=== PATIENT | female | born 1935 | race Hispanic/Latino ===

== ENCOUNTER 2016-07-20 07:56 | Day surgery (SDC) | payer OTHER ==
[2016-06-26 13:21] VITALS: BMI 25.6
--- NOTE | 2016-07-19 20:31 | HP ---
REASON FOR ADMISSION: Abnormal stress test, for cardiac catheterization. BRIEF CLINICAL HISTORY: This is an 81-year-old female with past medical history significant for anneliese nary artery disease, status post PTCA 1998, diabetes, hypertension, hyperlipidemia, who had recently a stress test, abnormal, so patient is scheduled for elective cardiac cath and possible angioplasty. PAST MEDICAL HISTORY: Significant for type 2 diabetes, hypertension, hyperlipidemia, coronary artery disease, peripheral neuropathy, history of coronary artery disease, status post PTCA in 1997. Previous cardiac workup as follows: The patient had echocardiography done 06/15/2016 that shows eject ion fraction 55%, moderate diastolic dysfunction, moderate aortic regurgitation, moderate mitral regu rgitation, trace tricuspid regurgitation. The patient had a stress test on 06/26/2016 that shows abnor mal SPECT myocardial perfusion study, partially reversible, apical defect suspicious for ischemia, ej ection fraction 70%. When compared from the previous study dated 09/24/2014, the apical defect appears new. REVIEW OF SYSTEMS: As per HPI. CURRENT MEDICATIONS: The patient is taking at home omeprazole 20 mg daily, Meloxicam, Mobic 50 mg, f olic acid 1 mg, aspirin 81 mg, metoprolol 50 mg, Plavix 75 mg, atorvastatin 40, metformin 500, clonid ine 0.1 mg, amlodipine 10 mg, lisinopril 40 mg daily. REVIEW OF SYSTEMS: As per HPI. ALLERGIES: No known drug allergies. PHYSICAL EXAMINATION: VITAL SIGNS: Temperature afebrile, heart rate 70, blood pressure 160/90. Height of the patient is 5 feet 5 inches, weight of the patient is 154 pounds, body mass index 25.6 kg/m2. HEENT: PERRLA. Extraocular muscles intact. NECK: Supple. No carotid bruits. No thyromegaly. CHEST: Clear to auscultation. HEART: S1, S2 regular. ABDOMEN: Soft. EXTREMITIES: Clubbing and cyanosis negative. BLOOD WORKUP: Pending. IMPRESSION: Abnormal stress test, history of coronary artery disease, status post percutaneous trans luminal coronary angioplasty in 1997, diabetes, hypertension, hyperlipidemia. RECOMMENDATION: We will give 300 Plavix, 325 aspirin. Risks, benefits, alternatives discussed with the patient. The patient agreed. We will proceed with cardiac catheterization. Further recommendat ion after cardiac catheterization. We will follow with you. Thank you, Dr. Collins and Dr. Goins, for providing the opportunity in taking care of the patient. Trish Salgado MD cc: [id number] TT: 07/19/2016 20:30:57 rn
[2016-07-20 08:19] LABS: ADD MANUAL DIFF? NO
[2016-07-20 08:28] LABS: BASO # 0.01 K/mm3 (0.0-2.0); BASO % 0.2 % (0.0-3.0); EOS # 0.2 (0.0-0.7); EOS % 4.3 % (1.5-5.0); GRAN # 2.85 (1.4-6.5); GRAN % 57.6 % (50.0-68.0); HEMATOCRIT 39.2 % (36.0-48.0); LYMPH # 1.2 (1.2-3.4); LYMPH % 24.7 % (22.0-35.0); MEAN CELL VOLUME 94.7 fL (80.0-105.0); MEAN CORPUSCULAR HEMOGLOBIN 32.1 pg (25.0-35.0); MEAN CORPUSCULAR HGB CONC 33.9 g/dl (31.0-37.0); MEAN PLATELET VOLUME 11.4 fl (7.0-11.0); MONO # 0.7 (0.1-0.6); MONO % 13.2 % (1.0-6.0); PLATELET COUNT 199 10^3/uL (120.0-450.0); RED CELL DISTRIBUTION WIDTH 13.6 % (11.5-14.5); WHITE BLOOD COUNT 4.9 10^3/ul (4.5-11.0)
[2016-07-20 08:39] LABS: ALB/GLOB RATIO 1.1 (1.1-1.8); ALKALINE PHOSPHATASE 76 U/L (38-133); ALT/SGPT 19 U/L (7-56); AST/SGOT 33 U/L (15-39); BILIRUBIN,TOTAL 0.7 mg/dL (0.2-1.3); BLOOD UREA NITROGEN 19 mg/dL (7-21); CALCIUM 9.5 mg/dL (8.4-10.5); CARBON DIOXIDE 27 mmol/L (21-33); CHLORIDE 105 mmol/L (98-107); CHOLESTEROL 163 mg/dL (130-200); GFR AFRICAN-AMERICAN > 60; GLUCOSE,RANDOM 119 mg/dL (70-110); POTASSIUM 4.2 mmol/L (3.6-5.0); SODIUM 141 mmol/L (132-148); TOTAL PROTEIN 7.5 g/dL (5.8-8.3)
[2016-07-20 08:42] LABS: INR 1.03 (0.93-1.08); PARTIAL THROMBOPLASTIN TIME 27.1 Seconds (23.7-30.8)
[2016-07-20] MEDS ORDERED: Nitroglycerin 50mg in D5W 250 ML IV ONE (10:56)
[2016-07-20] MEDS ORDERED: Eptifibatide 20 mg/10mL Inj IVP ONE (11:45)
[2016-07-20] MEDS ORDERED: Lidocaine 2% Inj (20ml) ONE (13:11)
[2016-07-20] MEDS ORDERED: Iodixanol 320 MG/ML 100 ML BOTTLE IV ONE (13:12)
[2016-07-20] MEDS ORDERED: Iodixanol 320 MG/ML 200 ML BOTTLE IV ONE (13:12)
[2016-07-20] MEDS ORDERED: Midazolam 2 MG/2 ML VIAL ONE (13:12)
[2016-07-20] MEDS ORDERED: Iohexol 350mgl/ml 50 ML ONE (13:12)
[2016-07-20] MEDS: Sodium Chloride 0.9% 1,000 ML IV SCH (13:36)
[2016-07-20] MEDS ORDERED: Sodium Chloride 0.9% 1,000 ML IV SCH (14:00)
[2016-07-20 16:12] LABS: ADD MANUAL DIFF? NO
[2016-07-20 16:14] LABS: BASO # 0.01 K/mm3 (0.0-2.0); BASO % 0.2 % (0.0-3.0); EOS % 0.8 % (1.5-5.0); GRAN # 3.23 (1.4-6.5); GRAN % 65.3 % (50.0-68.0); HEMATOCRIT 37.3 % (36.0-48.0); LYMPH # 1.2 (1.2-3.4); LYMPH % 23.2 % (22.0-35.0); MEAN CELL VOLUME 93.7 fL (80.0-105.0); MEAN CORPUSCULAR HEMOGLOBIN 32.4 pg (25.0-35.0); MEAN CORPUSCULAR HGB CONC 34.6 g/dl (31.0-37.0); MEAN PLATELET VOLUME 11.2 fl (7.0-11.0); MONO # 0.5 (0.1-0.6); MONO % 10.5 % (1.0-6.0); PLATELET COUNT 172 10^3/uL (120.0-450.0); RED CELL DISTRIBUTION WIDTH 13.4 % (11.5-14.5)
[2016-07-20 16:23] LABS: BLOOD UREA NITROGEN 15 mg/dL (7-21); CALCIUM 8.8 mg/dL (8.4-10.5); CARBON DIOXIDE 24 mmol/L (21-33); CHLORIDE 105 mmol/L (98-107); GFR AFRICAN-AMERICAN > 60; GLUCOSE,RANDOM 162 mg/dL (70-110); POTASSIUM 3.4 mmol/L (3.6-5.0); SODIUM 138 mmol/L (132-148)
--- NOTE | 2016-07-20 18:22 | CARD ---
APPROVED REPORT EKG Measurement Heart [id number] <Conclusion> Normal sinus rhythm Minimal voltage criteria for LVH, may be normal variant Nonspecific ST and T wave abnormality Prolonged QT Abnormal ECG
[2016-07-20] MEDS ORDERED: Potassium Chloride 20 mEq ER Tab PO ONE (19:21)
[2016-07-20] MEDS ORDERED: Nitroglycerin 2% Ointment Foilpak UD TOP STA (19:24)
[2016-07-20 19:39] LABS: TROPONIN I 0.15 ng/mL
--- NOTE | 2016-07-20 20:32 | CARD ---
APPROVED REPORT Procedure(s) performed: Left Heart Catheterization PTCA with Stenting with BOBBY of Distal LAD PTCA with Stenting with BOBBY of Mid LAD PTCA with Stenting of Proximal LAD with Bobby HISTORY PCI date was 05/2010), hypertension , dyslipidemia . INDICATION The indication(s) include : positive stress test. CASE TECHNIQUE The patient was brought electively to the Cardiac Catheterization Laboratory in a fasting state and was prepped and draped in a sterile manner. The left wrist was infiltrated with 2% Lidocaine subcutaneous anesthesia. A 6 Fr Glidesheath (Radial) sheath was inserted into the left radial artery without difficulty. Coronary angiography was performed using coronary diagnostic catheters. The left coronary system was accessed and visualized with a Diagnostic , 3.5JL,5Fr catheter. The right coronary system was accessed and visualized with a Diagnostic 3.5,Jr,5Fr catheter. The left ventricle was accessed and visualized with a Pig tail catheter. Closure device was deployed with a Fr TR Band (Regular) without any complications. The patient tolerated the procedure well and there were no complications associated with the procedure. Vessel Analysis The patient's coronary anatomy is co-dominant. The left main coronary artery is a large size vessel with diffuse calcification noted throughout this vessel and without significant stenosis. The left main trifurcates to the left anterior descending, circumflex, and ramus. The left anterior descending artery is a medium size vessel with diffuse calcification noted throughout this vessel and with significant stenosis. There is a 99% stenosis in the proximal segment. Mid and distal LAD has 90% stenoses The first diagonal branch is a medium size vessel with diffuse calcification noted throughout this vessel and without significant stenosis. The circumflex artery is a large size vessel with diffuse calcification noted throughout this vessel and without significant stenosis. Patent stent in Mid segment The first obtuse marginal branch is a medium size vessel with diffuse calcification noted throughout this vessel and without significant stenosis. The second obtuse marginal branch is a small size vessel with diffuse calcification noted throughout this vessel and without significant stenosis. The left posterior descending artery is a medium size vessel with diffuse calcification noted throughout this vessel and without significant stenosis. The ramus intermedius artery is a medium size vessel with diffuse calcification noted throughout this vessel and without significant stenosis. The right coronary artery is a large size vessel with diffuse calcification noted throughout this vessel and without significant stenosis. Patent stent in Mid segment There is a 50% stenosis in the mid segment. 50% stenosis in Distal segment The right posterior descending artery is a large size vessel with diffuse calcification noted throughout this vessel and without significant stenosis. Left Ventricle The left ventricle is normal in size with normal contractility. There was no cardiomyopathy. The left ventricular ejection fraction is estimated to be 65%. The left ventricular end diastolic pressure is 15 mmHg. There was no gradient across the aortic valve upon pullback. PCI Technique Lesion Anticoagulation was achieved with Heparin. Percutaneous coronary intervention was performed on the distal left anterior descending artery segment. The lesion stenosis prior to intervention was 80% with MARQUIS 2 flow. A 6 Fr XB 3.5 Guide Catheter was used to engage the ostium. BALLOON DILATION A Balloon catheter 2.25 x 12 mm Sprinter RX was inserted and inflated up to 10.00atm for 12seconds. STENT DEPLOYMENT A drug-eluting stent 2.75 x 18 mm Resolute BOBBY was inserted and inflated up to 10.00atm for 12seconds. Final angiography reveals % stenosis with MARQUIS 0 flow. PCI Technique Lesion 2 Percutaneous Coronary Intervention was performed on the mid left anterior descending artery segment. The lesion stenosis prior to intervention was 80-90% with MARQUIS 2 flow. A 6 Fr XB 3.5 Guide Catheter was used to engage the ostium. BALLOON DILATION A Balloon catheter 2.25 x 12 mm Sprinter RX was inserted and inflated up to 12atm for 20seconds. STENT DEPLOYMENT A drug-eluting stent 2.75 x 18 mm Resolute BOBBY was inserted and inflated up to 12atm for 20seconds. Final angiography reveals 0 % stenosis with MARQUIS 3 flow. PCI Technique Lesion 3 Percutaneous Coronary Intervention was performed on the proximal left anterior descending artery segment. The lesion stenosis prior to intervention was 99% with MARQUIS 1 flow. A 6 Fr XB 3.5 Guide Catheter was used to engage the ostium. BALLOON DILATION A Balloon catheter 3.25 x 15 mm Sprinter NC was inserted and inflated up to 12atm for 20seconds. STENT DEPLOYMENT A drug-eluting stent 3.0 x 34 mm Resolute BOBBY was inserted and inflated up to 12atm for 20seconds. POST STENT DEPLOYMENT BALLOON DILATION A Balloon catheter 3.25 x 15 mm Sprinter NC was inserted and inflated up to 14atm for 20seconds. Final angiography reveals 0 % stenosis with MARQUIS 3 flow. Conclusion Single Vessel CAD involving LAD,Proximal Instent Restenosis 99% MId LAD has 80-90% and Distal LAD has 90% stenosis Patent stent in Mid RCA and Cx mooderate Diz in Mid anf distal RCA. Preserved Lv Fx. Ef-65%, EDP-15 mmof Hg, Successful PTCA with BOBBY of Proximal LAd, Mid and distal LAD. Recommendations Daily ASA with Plavix for at least one year Aggressive Medical TherapyCardiac Risk Reduction Program Weight Loss Reduction Program CC; DRs. Collins/ Briseida.
[2016-07-21 00:08] VITALS: O2SAT 98
[2016-07-21] MEDS: Sodium Chloride 0.9% 1,000 ML IV SCH (05:10)
[2016-07-21 07:26] LABS: ADD MANUAL DIFF? NO
[2016-07-21] MEDS ORDERED: Pantoprazole 20 mg EC Tab PO SCH (07:30)
[2016-07-21 07:37] LABS: BASO # 0.01 K/mm3 (0.0-2.0); BASO % 0.2 % (0.0-3.0); EOS # 0.1 (0.0-0.7); EOS % 1.5 % (1.5-5.0); GRAN # 4.62 (1.4-6.5); GRAN % 70.4 % (50.0-68.0); HEMATOCRIT 38.8 % (36.0-48.0); LYMPH % 15.4 % (22.0-35.0); MEAN CELL VOLUME 93.5 fL (80.0-105.0); MEAN CORPUSCULAR HEMOGLOBIN 31.8 pg (25.0-35.0); MEAN PLATELET VOLUME 11.3 fl (7.0-11.0); MONO # 0.8 (0.1-0.6); MONO % 12.5 % (1.0-6.0); PLATELET COUNT 198 10^3/uL (120.0-450.0); RED CELL DISTRIBUTION WIDTH 13.5 % (11.5-14.5); WHITE BLOOD COUNT 6.6 10^3/ul (4.5-11.0)
[2016-07-21 07:47] LABS: ALB/GLOB RATIO 1.1 (1.1-1.8); ALKALINE PHOSPHATASE 88 U/L (38-133); ALT/SGPT 29 U/L (7-56); AST/SGOT 93 U/L (15-39); BILIRUBIN,TOTAL 0.7 mg/dL (0.2-1.3); BLOOD UREA NITROGEN 8 mg/dL (7-21); CALCIUM 9.1 mg/dL (8.4-10.5); CARBON DIOXIDE 25 mmol/L (21-33); CHLORIDE 106 mmol/L (95-110); GFR AFRICAN-AMERICAN > 60; GLUCOSE,RANDOM 120 mg/dL (70-110); MAGNESIUM 1.8 mg/dL (1.7-2.2); PHOSPHOROUS 3.2 mg/dL (2.5-4.5); SODIUM 141 mmol/L (132-148); TOTAL PROTEIN 7.4 g/dL (5.8-8.3)
[2016-07-21] MEDS ORDERED: Non Formulary Medication (Omeprazole [Omeprazole] 20 MG) PO SCH (10:00)
[2016-07-21 11:42] VITALS: BP 152/74; PULSE 76; RESP 20; TEMP 98
--- NOTE | 2016-07-21 11:51 | DS ---
REASON FOR ADMISSION: Left heart catheterization, possible angioplasty. BRIEF CLINICAL HISTORY: This is an 81-year-old female with a past medical history significant for mu ltiple PTCAs, started in 1998 at [facility], then patient had multiple stents at [facility]. Admitted yesterday because of left ____ and underwent cardiac catheterization. The patient und erwent subsequently 3 stent deployed in LAD. The patient thought you will get complication after the angioplasty so decided to stay overnight because the patient has a handicapped son and some social i ssues. The patient said that always after the cardiac catheterization she gets complications and ble eds. Does not want to go live by herself, so decided to make her stay. Today, patient is fairly sta ble. Denies any chest pain, shortness of breath, any palpitation. PHYSICAL EXAMINATION: VITAL SIGNS: Temperature afebrile, heart rate 68, blood pressure 136/64. HEENT: PERRLA. Extraocular muscles intact. NECK: Supple. No carotid bruits. No thyromegaly. CHEST: Clear to auscultation. HEART: S1, S2 regular. ABDOMEN: Soft. EXTREMITIES: Clubbing and cyanosis negative. BLOOD WORKUP: WBC 6.6, hemoglobin 13.2, hematocrit 38.8, platelet count 198. Chemistry shows sodium 141, potassium 4, chloride 106, carbon dioxide 25, anion gap of 14, BUN 8, creatinine 0.5, sugar 120 . IMPRESSION: Coronary artery disease status multiple stents. Yesterday, the patient had 3 stents dep loyed in left anterior descending. Diabetes, hypertension, hyperlipidemia, history of previous percu taneous transluminal coronary angioplasty. RECOMMENDATIONS: Will discharge the patient. Resume all previous medications, including patient's b aseline medication including meloxicam 50 mg daily, aspirin 81 mg daily, atorvastatin 10 mg daily, Pl avix 75 mg daily, folic acid 1 mg daily, lisinopril 40 mg daily, metoprolol tartrate 50 mg daily, ome prazole 20 mg daily, amlodipine 10 mg daily, clonidine 0.1 mg daily, metformin 500 b.i.d. We discont inue IV fluid. Principal procedure done this admission include left heart catheterization from the l t radial access, PTCA with 3 stents in LAD with a drug-eluting stent. Plan to discharge home. Callum brumfield follow as outpatient. Thank you, Dr. Collins, for providing the opportunity in taking care of the patient. The patient has e nough prescription supply so does not need any scripts at this time. Trish Salgado MD cc: [id number] TT: 07/21/2016 11:51:03 ean
--- NOTE | 2016-07-21 14:39 | CON ---
DATE: 07/21/2016 HISTORY OF PRESENT ILLNESS: The patient is an 81-year-old female with a history of coronary artery d isease and a history of stent placement in the past, who underwent elective cardiac catheterization a nd angioplasty by Dr. Salgado on 07/20/2016. She had 3 stents placed and was admitted overnight for obse rvation status post catheterization. PAST MEDICAL HISTORY: Includes type 2 diabetes mellitus, hypertension, coronary artery disease, dege nerative joint disease, hypercholesterolemia and gastroesophageal reflux disease. PAST SURGICAL HISTORY: Includes bladder prolapse surgery. ALLERGIES: The patient has no known drug allergies. CURRENT MEDICATIONS: Include metoprolol 50 mg daily, lisinopril 40 mg daily, omeprazole 20 mg daily, metformin 500 mg twice daily, Plavix 75 mg daily, Lipitor 40 mg daily, amlodipine 10 mg daily and me loxicam 15 mg daily. REVIEW OF SYSTEMS: The patient had an episode of chest pain post catheterization, was given some nit ro paste with relief of discomfort. There is no nausea, no vomiting, no diaphoresis at present and t he patient is medically stable for discharge. SOCIAL HISTORY: There is no history of alcohol or tobacco use. She lives alone and is independent w ith ADLs and IADLs. PHYSICAL EXAMINATION: VITAL SIGNS: Blood pressure 152/74, pulse 76, temperature 98, respiratory rate 20. HEENT: Head is normocephalic, atraumatic. Pupils equal, round, reactive to light. Extraocular move ments intact. NECK: Supple with no thyromegaly, no carotid bruit. LUNGS: Clear. HEART: Regular rate and rhythm. ABDOMEN: Soft, nontender, bowel sounds are normoactive. EXTREMITIES: Without cyanosis, clubbing, or edema. NEUROLOGIC: The patient is awake and oriented x 3 without focal, sensory or motor deficits. SKIN: Warm and dry. LABORATORY DATA: WBCs 6.6, hemoglobin 13.6, hematocrit 38.8. Sodium 141, potassium 4.0, chloride 10 6, CO2 25, BUN 14, creatinine 0.5, glucose 120. IMPRESSION: 1. Coronary artery disease, status post catheterization and stent placement x 3. 2. Type 2 diabetes mellitus with diabetic neuropathy. 3. Hypertension. 4. Degenerative joint disease. 5. Hypercholesterolemia. PLAN: The patient will be discharged to home today in stable condition. She will follow up as an ou tpatient in my office within the next 1-2 weeks and follow up as an outpatient with cardiology, Dr. Usman marquis. Activity is ad libitum. She will be maintained on a heart healthy diet. Yinka Collins JD, MD cc: [id number] TT: 07/21/2016 14:38:31 Confirmation # [id number] Dictation # [id number]
== END 2016-07-21 13:02 | disposition home or self-care (01) ==
LOC: CATH 07:56 → 2RSO 13:03 → CATH 07-21 13:02
PROVIDERS: ATTEND Internal Medicine
DX: I25.10 Atherosclerotic heart disease of native coronary artery without angina pectoris (principal); E11.9 Type 2 diabetes mellitus without complications; I10 Essential (primary) hypertension; E78.5 Hyperlipidemia, unspecified; Z98.61 Coronary angioplasty status
CPT/HCPCS: 36415; 80048; 80053; 80061; 82550; 83615; 84484; 85025; 85175; 85610; 85730; 86850; 86900; 92928; 93005; 93458 ×2; 99152; 99153; C1725 ×3; C1769 ×2; C1874 ×2; C1887 ×4; C9600; C9601; J0360; J1327; J1644 ×2; J2250; J3010; J7030; J7040; Q9967 ×2

== ENCOUNTER 2017-04-10 14:19 | Emergency (ER) | payer OTHER ==
[2017-04-10 14:50] VITALS: RESP 16; TEMP 98; BMI 26.6
[2017-04-10] MEDS ORDERED: Ibuprofen 100 MG/5 ML (BULK) PO STA (15:15)
--- NOTE | 2017-04-10 15:21 | ED PDOC ---
Arrival/HPI - General Chief Complaint: Female Genitourinary Time Seen by Provider: 04/10/17 15:14 Historian: Patient - History of Present Illness Narrative History of Present Illness (Text): 04/10/17 15:17 pt p/w + 3-4 days onset of dysuria/urinary frequency, + urinary bladder cramps, + frequent discomfort; pt states no gross hematuria noted, no urinary discharge noted; no fever/chills/sweats, no cp/sob/palpitations, no abd pain, no n/v, no numbness/tingling, no bowel changes, no fall/trauma/sick contact, no travel; pt states her last UTI was ~ 2 years ago; pt states symptoms today are similar to her prior episodes of UTI; pt denied other complaints; pt is here for further eval; pt denied fall/trauma/sick contact, no travel, pt denied vaginal bleeding/ discharge. Time/Duration: < week Symptom Onset: Sudden Symptom Course: Worsening Quality: Pressure, Tightness, Cramping Severity Level: 6 Activities at Onset: Rest Past Medical History - Provider Review Nursing Documentation Reviewed: Yes - Travel History Have you recently traveled outside [place] w/in the past 3 mons?: No - Cardiac Hx Cardiac Disorders: Yes Hx Pacemaker: No Other/Comment: stents - Pulmonary Hx Respiratory Disorders: No - Neurological Hx Paralysis: No - HEENT Hx HEENT Disorder: No - Renal Hx Renal Disorder: No - Endocrine/Metabolic Hx Endocrine Disorders: No - Hematological/Oncological Hx Blood Disorders: No Hx Blood Transfusions: No - Integumentary Hx Dermatological Disorder: No - Musculoskeletal/Rheumatological Hx Musculoskeletal Disorders: Yes - Gastrointestinal Hx Gastrointestinal Disorders: Yes Other/Comment: bladder mesh - Genitourinary/Gynecological Hx Urinary Tract Infection: Yes - Psychiatric Hx Emotional Abuse: No Hx Physical Abuse: No Hx Substance Use: No - Surgical History Other/Comment: mesh bladder - Anesthesia Hx Anesthesia Reactions: No Hx Malignant Hyperthermia: No - Suicidal Assessment Feels Threatened In Home Enviroment: No Family/Social History - Physician Review Nursing Documentation Reviewed: Yes Family/Social History: Unknown Family HX Smoking Status: Never Smoked Hx Alcohol Use: Yes (OCCASIONAL WINE) Hx Substance Use: No Allergies/Home Meds Allergies/Adverse Reactions: Allergies No Known Allergies Allergy (Verified 04/10/17 14:50) Home Medications: Home Meds Medication Instructions Recorded Confirmed Atorvastatin [Lipitor] 40 mg PO DIN 09/24/14 04/10/17 Clopidogrel [Plavix] 75 mg PO DAILY 09/24/14 04/10/17 amLODIPine [Norvasc] 10 mg PO DAILY 09/24/14 04/10/17 Lisinopril [Zestril] 40 mg PO DAILY 06/26/16 04/10/17 Metoprolol Tartrate [Lopressor] 50 mg PO DAILY 06/26/16 04/10/17 cloNIDine [Catapres] 0.1 mg PO DAILY 06/26/16 04/10/17 metFORMIN [glucOPHAGE] 500 mg PO BID 06/26/16 04/10/17 Aspirin [Ecotrin] 81 mg PO DAILY 07/13/16 04/10/17 Folic Acid 1 mg PO DAILY 07/13/16 04/10/17 Meloxicam [Mobic] 15 mg PO DAILY 07/13/16 04/10/17 Omeprazole 20 mg PO DAILY 07/13/16 04/10/17 Review of Systems - Review of Systems Constitutional: Normal Eyes: Normal ENT: Normal Respiratory: Normal Cardiovascular: Normal Gastrointestinal: Normal Genitourinary Female: Dysuria, Frequency. absent: Hematuria, Vaginal Bleeding, Vaginal Discharge Musculoskeletal: Normal Skin: Normal Neurological: Normal Endocrine: Normal Hemo/Lymphatic: Normal Psychiatric: Normal Physical Exam Vital Signs Reviewed: Yes Vital Signs Temp Pulse Resp BP Pulse Ox 04/10/17 14:51 98.0 F 77 16 174/91 H 96 04/10/17 14:49 98.0 F 77 16 172/91 H 97 Temperature: Afebrile Blood Pressure: Hypertensive Pulse: Regular Respiratory Rate: Normal Appearance: Positive for: Well-Appearing Pain Distress: None Mental Status: Positive for: Alert and Oriented X 3 - Systems Exam Head: Present: Atraumatic, Normocephalic Pupils: Present: PERRL Extroacular Muscles: Present: EOMI Conjunctiva: Present: Normal Ears: Present: Normal Mouth: Present: Moist Mucous Membranes Pharnyx: Present: Normal Neck: Present: Normal Range of Motion Respiratory/Chest: Present: Clear to Auscultation Cardiovascular: Present: Regular Rate and Rhythm Abdomen: Present: Tenderness, Normal Bowel Sounds, Other (well nourished female , no focal tenderness, no hernandes's sign, no mcburney's point tenderness, no masses/guarding/rigidity). No: Distention Back: Present: Normal Inspection, Other (no midline tenderness, no CVAT b/l, no step off, no gross deformities). No: CVA Tenderness, Midline Tenderness Upper Extremity: Present: Normal Inspection, Normal ROM, NORMAL PULSES, Capillary Refill < 2s Lower Extremity: Present: Normal Inspection, NORMAL PULSES, Normal ROM, Capillary Refill < 2 s Neurological: Present: GCS=15, CN II-XII Intact Skin: Present: Warm Psychiatric: Present: Alert Medical Decision Making ED Course and Treatment: 04/10/17 15:37 dysuria/urinary frequency a/p: dysuria/urinary frequency - ua, ucx - observe, supportive care 04/10/17 16:51 pt is not in distress pt is somewhat comfortable pt is made aware of her medical results pt is encouraged fluids pt will f/u as directed pt will be discharged home Reassessment Condition: Improved - Lab Interpretations Lab Results: Lab Results 04/10/17 15:28: Urine Color Yellow, Urine Appearance Cloudy, Urine pH 6.0, Ur Specific Paloma >= 1.030, Urine Protein 100 H, Urine Glucose (UA) Negative, Urine Ketones Negative, Urine Blood Large H, Urine Nitrate Negative, Urine Bilirubin Negative, Urine Urobilinogen 0.2, Ur Leukocyte Esterase Moderate H, Urine RBC Tntc, Urine WBC Tntc, Ur Epithelial Cells 3 - 4, Urine Bacteria Large I have reviewed the lab results: Yes (ABNL U/A) - Medication Orders Current Medication Orders: Nitrofurantoin Macrocrystals (Macrobid) 100 mg PO Q12 TYRON Discontinued Medications Ibuprofen (Ibuprofen Susp (Bulk)) 400 mg PO STAT STA Stop: 04/10/17 15:16 Last Admin: 04/10/17 15:46 Dose: 400 mg Ibuprofen (Motrin Oral Susp) 400 mg PO STAT STA Stop: 04/10/17 15:22 Phenazopyridine HCl (Pyridium) 100 mg PO STAT STA Stop: 04/10/17 15:16 Last Admin: 04/10/17 15:46 Dose: 100 mg Disposition/Present on Arrival - Present on Arrival Any Indicators Present on Arrival: No History of DVT/PE: No History of Uncontrolled Diabetes: No Urinary Catheter: No History of Decub. Ulcer: No History Surgical Site Infection Following: None - Disposition Have Diagnosis and Disposition been Completed?: Yes Diagnosis: UTI (urinary tract infection) Disposition: HOME/ ROUTINE Disposition Time: 16:52 Patient Plan: Discharge Condition: FAIR Discharge Instructions (ExitCare): Urinary Tract Infection in Women (ED), Phenazopyridine (By mouth) Print Language: MACEDONIAN Additional Instructions: Make sure to see your doctor in 1-2 days DRINK PLENTY OF FLUIDS take your medications as prescribed RETURN TO ED IF worse pain, cant breath, persistent vomiting, high fever >101- 102 for hours, altered behavior, unable to urinate, heavy/persistent bleeding, passing out, chest pain, or other medical emergencies Prescriptions: Nitrofurantoin Macrocrystals [Macrobid] 100 mg PO BID #14 cap Phenazopyridine HCl [Pyridium] 100 mg PO TID #6 tablet Referrals: Yinka Collins JD, MD [Primary Care Provider] - Follow up with primary Forms: [employer] (Italian)
[2017-04-10 15:38] LABS: URINE BILIRUBIN NEGATIVE (NEGATIVE); URINE BLOOD LARGE (NEGATIVE); URINE GLUCOSE (UA) NEGATIVE (NEGATIVE); URINE KETONE NEGATIVE (NEGATIVE); URINE LEUKOCYTE ESTERASE MODERATE Leu/uL (NEGATIVE); URINE PROTEIN 100 mg/dL (<30 mg/dL); URINE UROBILINOGEN 0.2 E.U./dL (<1 E.U./dL)
[2017-04-10 15:40] LABS: URINE APPEARANCE CLOUDY (CLEAR); URINE COLOR YELLOW (YELLOW)
[2017-04-10 16:06] LABS: URINE BACTERIA LARGE (NEG); URINE RBC TNTC /hpf (0-2); URINE WBC TNTC /hpf (0-6)
[2017-04-10 17:48] VITALS: BP 122/77; PULSE 84; O2SAT 99
== END 2017-04-10 17:20 | disposition home or self-care (01) ==
LOC: ED 14:19
DX: N39.0 Urinary tract infection, site not specified (principal)